=== PATIENT | male | born 1960 | race Caucasian/White ===

== ENCOUNTER → 2019-03-30 | Outpatient (CLI) | payer BC ==
--- NOTE | 2019-03-30 13:13 | PCVCIMAG ---
APPROVED REPORT Study performed: 03/30/2019 09:54:30 EXAM: Comprehensive 2D, Doppler, and color-flow Echocardiogram Patient Location: Echo lab Room #: 2Status: routine BSA: 2.40 HR: 66 bpmBP: 136/96 mmHg Rhythm: NSR Other Information Study Quality: Good Risk Factors: Cardiac Risk Factors: HTN, Hyperlipidemia Indications LV Function:Diastolic CAD Cardiomyopathy Hypertension/HDD Hx: Inferior PR, Stent 2D Dimensions IVSd: 9.30 (7-11mm)LVOT Diam: 24.23 (18-24mm) LVDd: 45.42 mm PWd: 7.41 (7-11mm)Ascending Ao: 31.52 (22-36mm) LVDs: 31.82 (25-40mm) Left Atrium: 28.01 (27-40mm) Aortic Root: 28.20 mm LV Single Plane 4CH: 57.00 % LV Single Plane 2CH: 59.00 % Biplane EF: 57.0 % Volumes Left Atrial Volume (Systole) Single Plane 4CH: 33.96 mLSingle Plane 2CH: 33.61 mL Biplane LA Volume: 35.00 mLLA ESV Index: 14.00 mL/m2 Aortic Valve AoV Peak Wes.: 1.34 m/s AO Peak Gr.: 7.14 mmHgLVOT Max P.82 mmHg LVOT Max V: 0.67 m/s HEIKE Vmax: 2.33 cm2 AI Vmax: 4.44 m/s AI [place]: 2.66 m/s2 AI PHT: 484.30 ms Mitral Valve E/A Ratio: 0.7 MV Decel. Time: 170.41 ms MV E Max Wes.: 0.47 m/s MV A Wes.: 0.67 m/s IVRT: 103.81 ms Pulmonary Valve PV Peak Wes.: 0.72 m/sPV Peak Gr.: 2.09 mmHg Pulmonary Vein P Vein S: 0.57 m/sP Vein A: 0.28 m/s P Vein D: 0.35 m/sP Vein A Dur.: 117.6 msec P Vein S/D Ratio: 1.63 Tricuspid Valve TR Peak Wes.: 2.24 m/s TR Peak Gr.: 20.06 mmHg TV Vmax: 0.73 m/s Left Ventricle The left ventricle is normal size. There is normal left ventricular wall thickness. Left ventricular systolic function is normal. Mild hypokinesis of base of inferoseptum LVEF is 50-55%. Mild diastolic dysfunction is present (impaired relaxation pattern). Right Ventricle The right ventricle is normal size. The right ventricular systolic function is normal. Atria The left atrium size is normal. The right atrium size is normal. Aortic Valve Aortic valve is trileaflet. Mild aortic insufficiency. There is no aortic valvular stenosis. Mitral Valve The mitral valve is normal in structure. There is no mitral valve regurgitation noted. No evidence of mitral valve stenosis. Tricuspid Valve The tricuspid valve is normal in structure. Trace to mild tricuspid regurgitation with a PA pressure of 27 mmHg. Pulmonic Valve The pulmonary valve is normal in structure. Mild pulmonic regurgitation. Great Vessels The aortic root is normal in size. The ascending aorta is normal in size. Aortic arch is normal in caliber. IVC is normal in size and collapses >50% with inspiration. Pericardium There is no pericardial effusion. There is no pleural effusion. <Conclusion> Left ventricular systolic function is normal. Mild hypokinesis of base of inferoseptum LVEF is 50-55%. Mild diastolic dysfunction is present (impaired relaxation pattern). Aortic valve is trileaflet. Mild aortic insufficiency, no stenosis. The mitral valve is normal in structure. No mitral valve regurgitation. Trace to mild tricuspid regurgitation with a pulmonary artery pressure of 27 mmHg. There is no pericardial effusion.
== END | disposition home or self-care (01) ==
LOC: PCVCIMAG 09:27
PROVIDERS: ATTEND Internal Medicine
DX: I08.2 Rheumatic disorders of both aortic and tricuspid valves (principal); I25.10 Atherosclerotic heart disease of native coronary artery without angina pectoris; I42.9 Cardiomyopathy, unspecified; I10 Essential (primary) hypertension; I44.2 Atrioventricular block, complete; I21.19 ST elevation (STEMI) myocardial infarction involving other coronary artery of inferior wall
CPT/HCPCS: 93306